=== PATIENT | female | born 1985 | race African-American/Black ===

== ENCOUNTER 2021-07-23 15:38 | Emergency (ER) | payer OTHER ==
[~2021-07-23] VITALS: Ht 157.5 cm; Wt 54.4 kg
[2021-07-23 15:47] VITALS: BP 129/85
--- NOTE | 2021-07-23 15:52 | NUR ---
patient ambulated to bed 8, steady gait.
--- NOTE | 2021-07-23 16:02 | NUR ---
36 YO FEMALE BIBS WITH C/O URINARY BURNING/TINGLING X1 DAY, VAGINAL DISCHARGE WITH ODOR, COLOR YELLOW/WHITE X3 DAYS. INTERMITTENT LOWER BACK AND RLQ ABDOMINAL PAIN 7/10. NAUSEA/DIARRHEA X2 DAYS, DENIES VOMITING. PATIENT IS A&OX4, VSS. PMH: NONE SX: TUBES TIED NKDA
--- NOTE | 2021-07-23 16:10 | NUR ---
PATIENT AMBULATED TO BATHROOM, STEADY GAIT.
--- NOTE | 2021-07-23 16:20 | NUR ---
URINE SAMPLE COLLECTED AND SENT TO LAB.
[2021-07-23] MEDS ORDERED: cefTRIAXone 500 MG in LIDOCAINE MPF 1% 1 ML IM ONE (16:55)
[2021-07-23 17:13] LABS: APPEARANCE,URINE CLEAR (CLEAR); BILIRUBIN,URINE NEGATIVE (NEGATIVE); BLOOD, URINE TRACE-I (NEGATIVE); COLOR,URINE YELLOW (YELLOW); LEUKOCYTE ESTERASE ,URINE 1+ (NEGATIVE); NITRITE, URINE NEGATIVE (NEGATIVE); UGLUCOSE NEGATIVE (NEGATIVE)
[2021-07-23] MEDS ORDERED: cefTRIAXone 500 MG VIAL ONE (17:17)
[2021-07-23] MEDS ORDERED: LIDOCAINE MPF 1% 5 ML ONE (17:18)
[2021-07-23 17:49] LABS: RBC,URINE 0-5 /HPF (0-5)
[2021-07-23] MEDS ORDERED: DOXY-487 PO (18:01)
--- NOTE | 2021-07-23 18:15 | NUR ---
Patient discharged with v/s stable. Written and verbal after care instructions NOT GIVEN, PATIENT LEFT WITHOUT DISCHARGE INSTRUCTIONS.
== END 2021-07-23 18:15 | disposition home or self-care (01) ==
LOC: MED 15:38
DX: N39.0 Urinary tract infection, site not specified (principal)
CPT/HCPCS: 36415; 81001; 81025; 87086; 87491; 96372; 99283; J0696; J2001